=== PATIENT | female | born 1950 | race Caucasian/White ===

== ENCOUNTER 2018-10-27 16:47 | Observation (INO) | payer MEDICARE ==
[~2018-10-27] VITALS: Ht 167.6 cm; Wt 104.0 kg
--- NOTE | ~2018-10-27 | HEMODYNAMI ---
PATIENT:SPEEDY CHI MEDICAL RECORD: [id number] : 46 LOCATION:[facility] D.2111 ADMISSION DATE: 10/27/18 Generatedon:10/28/201811:34 Patient name: SPEEDY CHI Patient #: [id number] SSN: : 1950 Date of study: 10/28/2018 Page: Of Hemodynamic Procedure Report Patient Data Patient Demographics Procedure consent was obtained First Name: SPEEDY Gender: Female Last Name: ALON : 1950 [facility] Initial: ATIYA Age: 68 year(s) Patient #: [id number] Race: Unknown Additional ID: [id number] Contact details [address]: [address] [place] [address] OfficialVirtualDJ State: [place] City: [place] Zip code: [address] Past Medical History Allergies Allergen Reaction Date Comments Reported Other allergy 10/28/2018 LIZETT HALEY Admission Admission Data Admission Date: 10/27/2018 Admission Time: 16:47 Room #: D.2111 Height (in.): 66 BSA: 2.12 (m2) Height (cm.): 167.64 BMI: 36.96 (kg/m2) Weight (lbs.): 229 Weight (kg.): 103.87 Lab Results Lab Result Date: 10/28/2018 Lab Result Time: 0:00 Biochemistry Name Units Result Min Max BUN mg/dl 26 --(----)-* 7 18 Creatinine mg/dl 1 --(--*-)-- 0.6 1.3 CBC Name Units Result Min Max Hematocrit % 40.2 -*(----)-- 42 54 Hemoglobin g/dl 13.6 --(*---)-- 13.5 17.5 Procedure Procedure Types Cath Procedure Diagnostic Procedure [facility] w/Coronaries FFR/IVUS FFR Initial Sedation Charges Moderate Sedation up to 15 minutes PCI Procedure Coronary Stent Coronary Stent Initial Coronary Stent Additional Procedure Description Procedure Date Procedure Date: 10/28/2018 Procedure Start Time: 11:07 Procedure Staff Name Function Javi Hurley MD Performing Physician Ivy Mg RT Monitor Tara Barfield RT Scrub Carly De Anda RN Nurse Procedure Data Cath Procedure Fluoroscopy Diagnostic fluoroscopy Total fluoroscopy Time: 4.9 time: 4.9 min min Diagnostic fluoroscopy Total fluoroscopy dose: 990 dose: 990 mGy mGy Contrast Material Contrast Material Type Amount (ml) Isovue 300 111 Entry Location Entry Primary Successful Side Size Upsize Upsize Entry Closure Succes sful Closure Location (Fr) 1 (Fr) 2 (Fr) Remarks Device Remarks Femoral Right 5 Fr 6 Fr Exoseal artery Short Estimated blood loss: 10 ml Diagnostic catheters Device Type Used For End Catheter Placement MULTIPACK Pigtail 5 Fr Procedure catheter MULTIPACK JL 4.0 5Fr Procedure catheter MULTIPACK 3DRC 5Fr Procedure catheter Procedure Complications No complications Procedure Medications Medication Administration Route Dosage 0.9% NaCl I.V. 100 ml/hr Oxygen etCO2 Nasal cannula 2 l/min Lidocaine 2% added to field 20 Heparin Flush Bag added to field 2 bags (1000units/500ml NS) Versed I.V. 2 mg Fentanyl I.V. 50 mcg Fentanyl I.V. 50 mcg Heparin Bolus I.V. 5000 units Integrilin (Bolus I.V. 9.5 ml 2mg/ml) Hemodynamics Rest BSA: 2.12 (m2) O2 Consumption: Estimated: 288.32 (ml/min) O2 Consumption indexed : Estimated:136 (ml/min/m) Pre Cath Intra NCS Post Cath Vital Signs Time Heart Resp SPO2 etCO2 NIBP (mmHg) Rhythm Pain Sedation Rate (ipm) (%) (mmHg) Status Level (bpm) 10:53:33 70 17 100 16.5 150/72(97) NSR 0 (11) 10(A) , No pain 10:57:51 71 14 96 36.2 113/61(83) NSR 0 (11) 10(A) , No pain 11:02:07 70 12 97 39 122/63(94) NSR 0 (11) 10(A) , No pain 11:06:23 70 14 96 38.4 118/58(81) NSR 0 (11) 10(A) , No pain 11:10:39 71 10 96 40.7 127/71(89) NSR 0 (11) 10(A) , No pain 11:14:57 77 11 97 39.9 140/72(105) NSR 0 (11) 9(A) , No pain 11:19:17 78 14 98 41.4 140/78(103) NSR 0 (11) 9(A) , No pain 11:24:16 79 16 99 41.4 Measuring NSR 0 (11) 9(A) , No pain 11:24:49 80 15 99 41.4 169/82(135) NSR 0 (11) 9(A) , No pain 11:29:23 81 14 99 39.9 172/86(126) NSR 0 (11) 10(A) , No pain Medications Time Medication Route Dose Verified Delivered Reason Notes Effectiveness by by 10:52:27 0.9% NaCl I.V. 100 Javi Carly used for ml/hr Xavi De Anda tele grout sewer line repairer 10:52:34 Oxygen etCO2 2 Javi Carly used for Nasal l/min Xavi De Anda procedure cannula RN 10:52:40 Lidocaine 2% added 20ml Javi Javi for local to vial Xavi Hurley MD anesthetic field 10:52:44 Heparin Flush added 2 Javi Javi used for Bag to bags Xavi Hurley MD procedure (1000units/500ml field NS) 11:06:28 Versed I.V. 2 mg Javi Carly for sedation Xavi De Anda RN 11:06:38 Fentanyl I.V. 50 Javi Carly for sedation mcg Xavi De Anda RN 11:10:30 Fentanyl I.V. 50 Javi Carly for sedation mcg Xavi De Anda RN 11:15:55 Heparin Bolus I.V. 5000 Javi Carly for verif ied units Xaiv De Anda anticoagulation with Dr. RUSSELL Hurley 11:16:08 Integrilin I.V. 9.5 Javi Carly for waste d (Bolus 2mg/ml) ml Xavi De Anda antiplatelet 0.5mL RN therapy Procedure Log Time Note 10:30:37 Signed procedure consent form obtained from patient. 10:35:48 Tara Barfield RT(R) sent for patient. Start room use. 10:35:49 Time tracking: Regular hours (M-F 7:00 - 5:00) 10:35:53 Plan of Care:Hemodynamics will remain stable., Cardiac rhythm will remain stable., Comfort level will be maintained., Respiratory function will remain adequate., Patient/ family verbilizes understanding of procedure., Procedure tolerated without complication., Recovers from procedure without complications.. 10:39:45 Patient Weight : 229 lbs 10:39:48 Patient Height : 66 inches 10:40:00 Patient allergic to Other allergyPCN, CODEINE 10:40:27 Lab Result : BUN 26 mg/dl 10:40: Lab Result : Creatinine 1 mg/dl 10:40: Lab Result : Hemoglobin 13.6 g/dl 10:40:27 Lab Result : Hematocrit 40.2 % 10:46:30 Patient received from Med II to CCL 1 Alert and oriented. Tansferred to table in Supine position. 10:46:31 Warm blankets applied, and samina hugger turned on for patient comfort. 10:46:34 Correct patient and procedure confirmed by team. 10:46:35 ECG and BP/O2 sat monitors applied to patient. 10:52:16 Vital chart was started 10:52:27 0.9% NaCl 100 ml/hr I.V. was administered by Carly De Anda RN; used for procedure; 10:52:34 Oxygen 2 l/min etCO2 Nasal cannula was administered by Carly De Anda RN; used for procedure; 10:52:40 Lidocaine 2% 20ml vial added to field was administered by Javi Hurley MD; for local anesthetic; 10:52:44 Heparin Flush Bag (1000units/500ml NS) 2 bags added to field was administered by Javi Hurley MD; used for procedure; 10:55:02 Full Disclosure recording started 10:55:04 Pre-procedure instructions explained to patient. 10:55:04 Pre-op teaching completed and patient verbalized understanding. 10:55:06 Family in patients room. 10:55:07 Patient NPO since Midnight. 10:55:09 Is patient on blood thinner?Yes 10:55:15 PRE LOADED 10:55:17 Patient diabetic? Yes. 10:55:24 INSULIN DEPENDENT 10:55:26 If diabetic: On Metformin? N/A 10:55:31 Patient not . Patient is over age 55. 10:55:32 Previous problem with sedation/anesthesia? No ? 10:55:34 Snore? Yes 10:55:34 Sleep apnea? No 10:55:36 Deviated septum? No 10:55:37 Opens mouth fully? Yes 10:55:37 Sticks out tongue? Yes 10:55:39 Airway obstruction? No ? 10:55:42 Dentures? No ? 10:55:47 Pre procedure: right dorsailis pedis pulse 1+ Palpable, but thready & weak; easily obliterated 10:56:02 PT IS A RESERVE RIGHT ARM GROIN ONLY 10:56:05 Patient pain scale 0/10 ?. 10:56:09 IV patent on arrival in left antecubital with 0.9% NaCl at [facility]. 10:56:11 Lab results completed and on chart. 10:56:14 Right groin area was prepped with chlora-prep and draped in sterile fashion 10:56:15 Alarms reviewed by R. N. 10:56:15 Sharps counted by scrub and verified by R.N. 10:56:40 Use device set Femoral Dx 10:56:42 ACIST Syringe (51619) opened to sterile field. 10:56:43 Bag Decanter (2002S) opened to sterile field. 10:56:44 ACIST Hand Control (52340) opened to sterile field. 10:56:44 ACIST Manifold (34506) opened to sterile field. 10:56:45 Tegaderm 4 x 4 (1626W) opened to sterile field. 10:56:46 Medline Cath Pack ([id number]) opened to sterile field. 10:56:48 DIAGNOSTIC Multipack 5Fr catheter set (VH0564) opened to sterile field. 10:57:02 EMERALD Guide Wire (467-014) opened to sterile field. 10:57:03 SHEATH 5FR Deepwater (NAK427) opened to sterile field. 11:03:12 Zero performed for pressure channel P1 11:05:15 --------ALL STOP TIME OUT------ 11:05:16 Final Timeout: patient, procedure, and site verified with staff and physician. All members of the team are in agreement. 11:05:18 Right groin site verified by team. 11:05:20 Maximum allowable Isovue 300 dose 300ml. Physician notified. (300ml for normal creatinines. For patients with creatinine of 1.7 or higher multiply weight(kg) x 5 divided by creatinine.) 11:05:25 Fire Safety Assessment: A--An alcohol-based skin anteseptic being used preoperatively., C--Open oxygen or nitrous oxide is being used., D--An ESU, laser, or fiber-optic light is being used. 11:05:28 Physical assessment completed. ASA score P 2 - A patient with mild systemic disease as per Javi Hurley MD. 11:05:31 Sedation plan: IV Moderate Sedation Medication:Versed, Fentanyl 11::28 Versed 2 mg I.V. was administered by Carly De Anda RN; for sedation; 11::38 Fentanyl 50 mcg I.V. was administered by Caryl De Anda RN; for sedation; 11::34 Local anesthetic to right femoral artery with Lidocaine 2% by Javi Hurley MD.INITIAL ACCESS ONLY 11:09:50 NEEDLE iMusica 18G 7cm Percutaneous Entry needle (I52490) opened to sterile field. 11:10:30 Fentanyl 50 mcg I.V. was administered by Carly De Anda RN; for sedation; 11:10:30 A 5 Fr sheath was inserted into the Right Femoral artery 11:10:37 A MULTIPACK Pigtail 5 Fr catheter was advanced over the wire and used for Procedure. 11:11:24 LV gram done using SHIPLEY 11:11:26 Injector settings: Ml/sec: 10, Volume: 20, 11:11:32 EF : 60 % 11:12:56 A MULTIPACK JL 4.0 5Fr catheter was advanced over the wire and used for Procedure. 11:12:57 LCA angiography performed. 11:13:08 Catheter removed. 11:13:27 SHEATH 6FR Deepwater (HDT033) opened to sterile field. 11:13:27 INFLATOR Merit BasixCompak (KH6722) opened to sterile field. 11:13:28 CHOICE PT Extra Support 182cm wire ([id number]) opened to sterile field. 11:13:34 Saint Ann Verrata Plus pressure wire (09464K) opened to sterile field. 11:13:40 Sheath upsized to a 6 Fr Short. 11:14:14 A MULTIPACK 3DRC 5Fr catheter was advanced over the wire and used for Procedure. 11:14:20 RCA angiography performed. 11:14:22 Catheter removed. 11:15:55 Heparin Bolus 5000 units I.V. was administered by Carly De Anda RN; for anticoagulation; verified with Dr. Hurley 11:16:08 Integrilin (Bolus 2mg/ml) 9.5 ml I.V. was administered by Carly De Anda RN; for antiplatelet therapy; wasted 0.5mL 11:16:15 GUIDE 6FR HS I catheter (LA6HSI) opened to sterile field. 11:16:26 6 Fr HS 1 guide catheter was inserted over the wire 11:16:31 CHOICE ES 182 wire advanced. 11:16:32 Wire advanced across lesion. 11:17:50 Place stent Inflation Number: 1 A VINNIE RX 3.5 x 18 stent ([id number]) was prepped and advanced across the Prox RCA 90. The stent was deployed at 13 JENNIFER for 0:00 (min:sec) 0. 11:18:31 Stent catheter was removed intact over wire. 11:18:31 Wire removed. 11:18:33 Guide catheter removed. 11:21:04 GUIDE 6FR XBLAD 3.5 catheter ([id number]) opened to sterile field. 11:21:14 6 Fr XBLAD 3.5 guide catheter was inserted over the wire 11:21:29 CHOICE ES 182 wire advanced. 11:21:38 Wire advanced across lesion. 11:22:46 Inflate balloon Inflation number: 1 A EUPHORA 2.0 x 15 Balloon ([id number]) was prepped and advanced across the 1st Diag , then inflated to 11 JENNIFER for 0:00 (min:sec) . 11:22:59 Inflation number: 2 The EUPHORA 2.0 x 15 Balloon ([id number]) was reinflated across the 1st Diag , to 11 JENNIFER for 0:00 (min:sec) . 11:23:12 Balloon removed over the wire. 11:25:09 Place stent Inflation Number: 3 A VINNIE RX 2.0 x 15 stent ([id number]) was prepped and advanced across the 1st Diag . The stent was deployed at 11 JENNIFER for 0:00 (min:sec) . 11:25:33 Stent catheter was removed intact over wire. 11:25:38 Wire removed. 11:26:59 FFR/IFR wire advanced. 11:27:22 Wire advanced across lesion. 11:28:13 mLAD lesion measured at .90 with IFR 11::18 Wire removed. 11::19 Guide catheter removed. 11::28 EXOSEAL 6Fr (EX600) opened to sterile field. 11::18 Sheath removed intact; hemostasis achieved with Exoseal to the Right Femoral artery. 11:29:19 Procedure ended.(Physican Out) 11::29 Fluoroscopy dose: 990 mGy 11:: Flurop Dose total: 990 11::34 Fluoroscopy time 04.90 minutes. 11::42 Contrast amount:Isovue 300 111ml. 11::43 Sharps counted by scrub and verified by R.N. 11::46 Post-op/insertion site Right Femoral artery dressed using a 4 x 4 and Tegaderm. 11::49 Post-procedure physical assessment completed. ASA score P 2 - A patient with mild systemic disease as per Javi Hurley MD. 11:29:51 Post procedure rhythm: sinus rhythm 11::53 Estimated blood loss: 10 ml 11::55 Post procedure instruction explained to patient.Patient verbalizes understanding. 11::55 Patient needs reinforcement of post procedure teaching. 11:30:18 Procedure type changed to Cath procedure, Diagnostic procedure, LHC, LHC w/Coronaries, FFR/IVUS, FFR Initial, Sedation Charges, Moderate Sedation up to 15 minutes, PCI procedure, Coronary Stent, Coronary Stent Initial, Coronary Stent Additional 11:31:13 Procedure and supply charges have been captured, reviewed, submitted and are correct. 11:31:15 Procedure Complication : No complications 11:31:17 Vital chart was stopped 11::18 See physician's report for complete and final results. 11:31:19 Report given to PCU. 11:31:21 Patient transfered to PCU with Bed. 11:31:28 End room use (Document Last) Intervention Summary Intervention Notes Time ActionType Lesion and Equipment Used Action# Pressure Duration Attributes 11:17:50 Place stent Prox RCA VINNIE RX 3.5 x 1 13 00:00 18 stent ([id number]) 11:22:46 Inflate 1st Diag EUPHORA 2.0 x 1 11 00:00 balloon 15 Balloon ([id number]) 11:22:59 Reinflate 1st Diag EUPHORA 2.0 x 2 11 00:00 balloon 15 Balloon ([id number]) 11:25:09 Place stent 1st Diag VINNIE RX 2.0 x 3 11 00:00 15 stent ([id number]) Device Usage Item Name Manufacture Quantity Catalog Number Hospital Part Current Minimal Lot# / Charge Number Stock Stock Serial# Code ACIST Syringe Acist 1 28739 650011 367130 931921 20 (99274) Medical Systems Wellcentive Bag Decanter Microtek 1 2001S 395680 34869 112658 5 (2001S) Medical Inc. ACIST Hand Acist 1 89215 757662 364984 889446 5 Control Medical (89250) Systems Inc ACIST Manifold Acist 1 01863 715865 691016 647144 5 (88022) Medical Systems Wellcentive Tegaderm 4 x 4 3M 1 1626W 243565 360120 255599 5 (1626W) Medline Cath Medline 1 [id number] 068745 20755 143090 5 Pack ([id number]) DIAGNOSTIC Cardinal 1 RM9763 376208 70757 151776 30 Multipack 5Fr Health catheter set (ZK5471) EMERALD Guide Cardinal 1 502-455 792027 676305 483273 5 Wire (502-455) Health SHEATH 5FR Terumo 1 PRB805 251498 178016 089541 5 Deepwater (DYQ336) NEEDLE Cook Cook Medical 1 E74688 155794 34362 699067 5 18G 7cm Percutaneous Entry needle (C26850) MULTIPACK Cardinal 1 109683 5 Pigtail 5 Fr Health catheter SHEATH 6FR Terumo 1 RHC975 547507 705821 982342 40 Deepwater (VIB512) INFLATOR Merit Merit 1 FI3707 274065 790572 687208 15 [facility] CenterDigitel Medical (JS3226) CHOICE PT Carnation 1 [id number] 342299 560549 247479 5 Extra Support Scientific 182cm wire ([id number]) Saint Ann Saint Ann 1 83800N 656320 601390751 422060 5 Verrata Plus pressure wire (64767W) MULTIPACK JL Cardinal 1 356822 5 4.0 5Fr Health catheter MULTIPACK 3DRC Cardinal 1 104190 5 5Fr catheter Health GUIDE 6FR HS I Medtronic 1 LA6HSI 328393 69208 635189 1 catheter (LA6HSI) VNINIE RX 3.5 x Medtronic 1 [id number] 121058 1259631 504674 5 [id number] 18 stent ([id number]) GUIDE 6FR Cardinal 1 [id number] 330242 057537 156583 10 XBLAD 3.5 Health catheter ([id number]) EUPHORA 2.0 x Medtronic 1 [id number] 197382 949847 878879 5 [id number] 15 Balloon ([id number]) VINNIE RX 2.0 x Medtronic 1 [id number] 219910 9719464 306184 5 [id number] 15 stent ([id number]) EXOSEAL 6Fr Cardinal 1 EX600 496949 633538 477421 10 (EX600) Health Signature Audit [place] Stage Time Signature Unsigned Intra-Procedure 10/28/2018 Ivy Mg 11:34:35 AM RT(R) Signatures Monitor : Ivy Mg Signature : RT Date : Time : [place] [id number] [place] [address]
--- NOTE | ~2018-10-27 | DS ---
PATIENT:SPEEDY CHI :46 MEDICAL RECORD: [id number] DISCHARGE SUMMARY ADMISSION DATE: 10/27/18 DISCHARGE DATE: 10/28/18 DATE OF SERVICE: 10/28/2018 DIAGNOSES: 1. Non-Q-wave myocardial infarction. 2. Coronary artery disease. 3. Percutaneous transluminal coronary angioplasty and stent to the right coronary artery and left anterior descending diagonal this admission. 4. Hypertension. 5. Hyperlipidemia. HOSPITAL COURSE: Ms. Chi presents with acute coronary syndrome, non-Q-wave myocardial infarction, found to have critical disease of the RCA and LAD diagonal and underwent successful PTCA and stent of both territories, was discharged home with the addition of aspirin and Plavix to her medical regimen. She is already on a statin, beta-pavan was not added due to bradycardia. Follow [facility] with [facility] in [facility] month. TRANSINT:[id number] Voice Confirmation ID: [id number] DOCUMENT ID: [id number] MIGUELINA PANDYA MD CC: [id number] DICTATION DATE: 10/28/18 1135 BOOK CUTTER: 10/29/18 0427 DIS IN 10/28/18 [facility] [address] [place] [address]
[~2018-10-27 16:47] MED LIST: BAYER CHEWABLE81 MG PO; FLAGYL500 MG PO; LANTUS INSULIN10 ML SC; LEVAQUIN500 MG PO; PERCOCET 10/3251 TA1 PO; PRAVACHOL20 MG PO; PROZAC20 MG PO; ZETIA10 MG PO
[2018-10-27 17:50] LABS: BASOPHILS 0.4 % (0-2); EOSINOPHILS 1.6 % (0-7); HEMATOCRIT 40.2 % (36.0-48.0); HEMOGLOBIN 13.6 g/dL (12-16); IMMATURE GRANULOCYTES 0.4 % (0-5); LYMPHOCYTES 18.4 % (15-50); MCH 29.4 pg (26.0-34.0); MCHC 33.8 g/dL (31.0-37.0); MCV 86.8 fL (80.0-100.0); MEAN PLATELET VOLUME 10.4 fL (7.4-10.4); MONOCYTES 7.7 % (2-11); NEUTROPHILS 71.5 % (40-80); PLATELET COUNT 226 10x3/uL (130-400); RBC 4.63 10x6/uL (4.00-5.40); RDW 13.7 % (11.5-14.5); WBC 7.5 10x3/uL (4.8-10.8)
[2018-10-27 18:06] LABS: ANION GAP 14.2 mmol/L (8-16); CALCIUM 8.9 mg/dL (8.5-10.1); CARBON DIOXIDE 26.3 mmol/L (21.0-32.0); POTASSIUM - SERUM 4.5 mmol/L (3.5-5.1)
--- NOTE | 2018-10-27 18:06 | NUR ---
PT A DIRECT ADMIT WITH CP. HOWEVER NO CURRENT CHEST PAIN. VSS. WILL BEGIN ADMISSION WORKUP AND CHECK ORDERS. DID START 22 GUAGE PIV TO L.FA X2 STICKS, SALINE LOCKED. WILL APPLY TELEMETRY. PAGED FOR CONSULT AND HE WILL SEE IN AM. NO IMMEDIATE NEEDS. AT BEDSIDE. WILL CTM.
[2018-10-27 18:28] LABS: CKMB 1.1 U/L (0.0-3.6); CREATINE KINASE 103 UL (21-215)
[2018-10-27 18:40] LABS: TROPONIN-I 0.353 ng/mL (0.000-0.060)
[2018-10-27 20:00] VITALS: BP 134/61
[2018-10-27] MEDS ORDERED: LANTUS SOL100 UNIT/1 SQ (21:29)
[2018-10-27] MEDS ORDERED: MAXZIDE 75/501 TAB PO (21:32)
[2018-10-27] MEDS ORDERED: AVAPRO75 MG PO (21:33)
[2018-10-27] MEDS ORDERED: PROZAC40 MG PO (21:33)
[2018-10-27] MEDS ORDERED: HUMALOG 30100 UNITS/ SC (21:34)
[2018-10-28] VITALS: BP 111/62
[2018-10-28 00:10] LABS: CKMB 1.2 U/L (0.0-3.6); CREATINE KINASE 102 UL (21-215)
[2018-10-28 00:12] LABS: TROPONIN-I 0.379 ng/mL (0.000-0.060)
[2018-10-28 04:00] VITALS: BP 115/49
[2018-10-28 04:34] VITALS: BP 134/61; Ht 167.6 cm; Wt 104.0 kg
[2018-10-28 06:31] LABS: CKMB 1.1 U/L (0.0-3.6); CREATINE KINASE 83 UL (21-215)
--- NOTE | 2018-10-28 07:45 | NUR ---
INITIAL ROUNDING, THE PATIENT IS AWAKE AND RESTING IN THE BED, SHE DENIES PAIN AND STATES, "IM SUPPOSED TO HAVE HEART CATH TODAY", CALL LIGHT IN REACH.
[2018-10-28 08:31] VITALS: BP 118/45
--- NOTE | 2018-10-28 09:42 | NUR ---
CALLED PHARMACY, SPOKE TO RAMOS TO REQUEST HIGH DOSE PLAVIX PER DR PANDYA
--- NOTE | 2018-10-28 11:40 | NUR ---
CALLED AND REPORTED TO ZANDRA Champagne MA FOR DR AYALA THAT THE PATIENT IS BEING DISCHARGED FROM THE TRANSMISSION SYSTEMS OPERATOR PER DR PANDYA
--- NOTE | 2018-10-28 11:51 | NUR ---
PATIENT ARRIVED BACK TO THE FLOOR VIA BED WITH EXPORT FREIGHT SPECIALIST STAFF AFTER THE FLOW COORD TIMOTEO WAS TOLD THE PATIENT WOULD DISHCARGE FROM THE [facility]. SHE IS NOT BEING DISCHARGED FROM THE EXPORT FREIGHT SPECIALIST. DR AYALA WILL BE CALLED AGAIN TO SET UP FOLLOW UP APPOINTMENT.
[2018-10-28] MEDS ORDERED: TRIAMTERENE-HCT1 TA2 PO (14:23)
[2018-10-28] MEDS ORDERED: PLAVIX75 MG PO (14:27)
[2018-10-28] MEDS ORDERED: PRAVACHOL80 MG PO (14:28)
--- NOTE | 2018-10-28 14:53 | NUR ---
PATIENT RESTING WITH EYES CLOSED, WAKES EASILY. FAMILY AT THE BEDSIDE. CALL LIGHT IN REACH. RIGHT GROIN DRESSING CDI, NO HEMATOMA NOTED. PATIENT CONTINUES TO LAY FLAT, AWAITING DISCHARGE
--- NOTE | 2018-10-28 15:50 | MORECARE ---
CASE MANAGEMENT DISCHARGE SUMMARY PATIENT: SPEEDY CHI RAJPUT UNIT: [id number] ADM DATE: 10/27/18 AGE: 68 : 46 SEX: F ROOM/BED: D.2111 AUTHOR: JOSEF DONOVAN PHYSICIAN: REFERRING PHYSICIAN: FRANKIE AYALA MD DATE OF SERVICE: 10/28/18 Discharge Plan Patient Name: SPEEDY CHI Facility: [facility]:[place] : 1950 Planned Disposition: Home Anticipated Discharge Date: 10/28/18 Discharge Date: Expected LOS: 1 Initial Reviewer: [email or web address] Initial Review Date: 10/28/2018 Generated: 10/28/18 4:50 pm Patient Name: SPEEDY CHI Page 01007 at 1550 All edits/amendments must be made on the electronic document DICTATION DATE: 10/28/18 1550 CHINESE HERBALIST: RUDI 10/28/18 1550 RPT#: [id number] DC DATE: STATUS: ADM IN [facility] [address] [place] [address] END OF REPORT
--- NOTE | 2018-10-28 16:16 | NUR ---
DISCHARGE PAPERS REVIEWED WITH THE PATIENT AND HER FAMILY, RX FOR PLAVIX GIVENT TO THE PATIENT. VITAL SIGNS WNL AND STABLE 135/57. PULSE 80. IV REMOVED FROM THE PATIENTS LEFT FOREARM REMOVED, CATH TIP IN TACT. TELE MONITOR REMOVED FROM THE PATIENT.
[2018-10-28 16:38] VITALS: BP 133/57
--- NOTE | 2018-10-28 16:47 | HP ---
PATIENT: SPEEDY CHI MEDICAL RECORD: [id number] ACCOUNT: [id number] LOCATION:[address] : 48 ADMISSION DATE: 10/27/18 PCP: FRANKIE AYALA MD HISTORY AND PHYSICAL EXAMINATION REASON FOR ADMISSION: Substernal chest pain. HISTORY OF PRESENT ILLNESS: The patient is a 68-year-old female with poorly controlled diabetes mellitus and metabolic syndrome. She states that, 2 days prior to admission, she was sitting down, resting, and developed onset of a muscular-type spasm in her substernal area. It waxed and waned for approximately an hour, did radiate into both jaws, and gradually resolved. She said she almost went to the hospital, but did not go. She was nauseated, but had no diaphoresis. She had another episode this afternoon at 2:45 at rest. Not related to meals. It as well was substernal tight muscular cramping feeling and then did radiate into her neck and jaw. It is now resolved. She came to the office with these symptoms. She denies any recent exertional chest discomfort. She said, with the first episode, she did vomit. She is a nonsmoker. PAST MEDICAL HISTORY: Poorly controlled diabetes mellitus with labs 6 months ago showing a fasting blood sugar of 192 and a A1c of 8.5; history of depression; postmenopausal posthysterectomy; hyperlipidemia; hypertension; osteoarthritis; history of carcinoma of the breast, post-mastectomy; history of cataracts; diverticulitis, for which she was hospitalized in 2014; and obesity. PAST SURGICAL HISTORY: Cataracts, both eyes; mastectomy of right breast in 1990; and history of hysterectomy and oophorectomy. SOCIAL HISTORY: She has remarried, previously , retired from being a teacher. She drinks coffee daily. She does not use alcohol or drugs. She does not smoke or have a history of that. She has poor exercise habits after shelter in 2012. ALLERGIES: PENICILLIN, CODEINE, AND METFORMIN. FAMILY HISTORY: Father at 79 with CABG and PTCA in the past, heart disease initially at age 50. Mother at 85 with CAD, hypertension, diabetes, and chronic urinary tract infections. Brother had CAD; PTCA, acute myocardial infarction. MEDICATIONS: Lantus insulin 80 units subcutaneously daily, pravastatin 80 mg with evening meal, Dyazide one q.a.m., Prozac 40 mg daily, irbesartan 75 mg p.o. daily, Humalog sliding scale as indicated, Flonase nasal spray one squirt in each nostril daily, and aspirin 81 mg daily. REVIEW OF SYSTEMS: GENERAL: She denies fatigue or fever. HEENT: No recent visual change, sinus congestion, sore throat, or hearing difficulty. RESPIRATORY: Denies shortness of breath, cough, or hemoptysis. CARDIAC: Substernal rest chest pain on 2 occasions, one 2 days ago and one this afternoon. There was tight muscular pain and it gradually crescendoed, radiating into her jaws and ears bilaterally. It lasted about an hour and resolved. Vomiting with one. No recent exertional chest pain and no HISTORY AND PHYSICAL [id number] SPEEDY CHI claudication. GENITOURINARY: No nocturia. GYNECOLOGIC: No vaginal bleeding. ENDOCRINE: Denies polyuria, polydipsia, heat or cold intolerance. NEUROLOGIC: No history of stroke, TIA, or vascular headaches. INTEGUMENT: No rash or itching. PSYCHIATRIC: Admits to depressed mood, stable on Prozac. PHYSICAL EXAMINATION: GENERAL: Alert 68-year-old female, in no acute distress. VITAL SIGNS: Temperature is 98.6, blood pressure is 130/68, heart rate is 72 and regular, and respirations are 18. She weighs 231 pounds with height of 5 feet 5 inches and BMI of 38.4. HEENT: Oropharynx unremarkable. Eyes are clear. Pupils are reactive with lens implants noted. NECK: No bruits or masses. CHEST: Distant breath sounds without wheeze or rales. HEART: Regular rate and rhythm without MGR. PMI appropriate. BREASTS: Right breast is absent. ABDOMEN: Grossly obese and nontender throughout. Bowel sounds are active. PELVIC: Deferred. EXTREMITIES: Trace bipedal edema. No acrocyanosis. NEUROLOGICAL: Oriented to person, place, and time. Cranial nerves are intact. Gait is normal. Memory is intact. LABORATORY DATA: EKG shows right bundle-branch block with reciprocal changes in the anterolateral leads, which is unchanged from February of 2018. ASSESSMENT: 1. Unstable angina. 2. Metabolic syndrome with poorly controlled diabetes mellitus. 3. Family history of early CAD in father at age 50. 4. Hypertension. 5. Hyperlipidemia. 6. Morbid obesity. 7. History of diverticulosis, postmenopausal, and osteoarthritis. PLAN: The patient will be directly admitted to the cardiac floor with stat enzymes. She will be placed at rest with O2. Nitro as needed. Cardiology consult will be obtained and echo as well. TRANSINT:[id number] Voice Confirmation ID: [id number] DOCUMENT ID: [id number] FRANKIE AYALA MD at 1647 CC: [id number] DICTATION DATE: 10/27/18 1631 FONDANT PUFF MAKER: 10/27/18 1710 ADM IN [facility] [address] [place] [address]
--- NOTE | 2018-10-28 18:07 | CN ---
PATIENT NAME:SPEEDY CHI MEDICAL RECORD: [id number] : 46 LOCATION:D. D.2111 ADMIT DATE: 10/27/18 ACCOUNT: [id number] CONSULTING PHYSICIAN: MIGUELINA PANDYA MD REFERRING PHYSICIAN: FRANKIE AYALA MD DATE OF CONSULTATION: 10/28/2018 DIAGNOSES: 1. Non-Q-wave myocardial infarction. 2. Coronary artery disease. 3. Hyperlipidemia. 4. Hypertension. 5. Insulin-dependent diabetes. HISTORY OF PRESENT ILLNESS: Mrs. Chi has no previous cardiac history. She began having episodes of chest pain on Friday. This persisted. She presented to the Emergency Room last night. Troponin was mildly elevated. EKG shows lateral ST depression as well as T wave inversion. She does continue to have episodes of chest discomfort this morning, although improved. She is on optimal medical therapy as her heart rate is 60 and her systolic blood pressure is in the 111 range. PHYSICAL EXAMINATION: GENERAL APPEARANCE: Well-nourished, well-developed, appears stated age. Level of distress, comfortable. PSYCHIATRIC: Mental status, alert, normal affect. Orientation, oriented to time, place and person. EYES: Lids and conjunctiva, noninjected. No discharge, no pallor. ENT: Lips, teeth, gums, normal dentition. Oropharynx, no cyanosis, no pallor. NECK: Carotid arteries, bilateral normal upstroke, no bruits, no thrills. JUGULAR VEINS: No jugular venous pressure or distention. CERVICAL LYMPH NODES: Nontender, nonenlarged. THYROID: Not enlarged. Nontender. No nodules. LUNGS: Respiratory effort, unlabored. CHEST: Normal curvature. No thoracic deformity. No chest wall tenderness. Percussion, resonant. Auscultation, clear. No wheezes, no rales, no rhonchi. CARDIOVASCULAR: Precordial exam, nondisplaced. No heaves or pericardial thrills. Rate and rhythm, regular. Heart sounds, normal S1, normal S2. No S3, no gallop, no rub. Systolic murmur, not heard. Diastolic murmur, not heard. EXTREMITIES: No cyanosis, no edema. Peripheral pulses, full and equal in all extremities, except as noted. No bruits appreciated. ABDOMEN: Soft, nondistended. Normal aorta. No bruit. Nontender. No masses. Liver, nontender, no hepatomegaly. Spleen, nontender, no splenomegaly. MUSCULOSKELETAL: No joint tenderness. No joint swelling. No erythema. NEUROLOGICAL: Normal gait, normal strength, normal tone. SKIN: Warm and dry. OVERALL IMPRESSION: Non-Q-wave myocardial infarction and continued chest discomfort, on optimal medical management. We will proceed with coronary angiography. Further care depends upon findings of the angiography. TRANSINT:[id number] Voice Confirmation ID: [id number] DOCUMENT ID: [id number] CONSULT REPORT [id number] SPEEDY CHI JEFFREY MD at 1807 CC: [id number] DICTATION DATE: 10/28/18912 PROCESS INSPECTOR: 10/28/18 1209 DIS IN 10/28/18 [place] [id number] [place] [address]
--- NOTE | 2018-10-28 18:07 | EC ---
PATIENT:SPEEDY CHI DATE OF SERVICE: 10/27/18 SEX: F MEDICAL RECORD: [id number] DATE OF : 46 LOCATION:D.M2 D.211 AGE OF PATIENT: 68 ADMISSION DATE: 10/27/18 REFERRING PHYSICIAN: INTERPRETING PHYSICIAN: MIGUELINA HURLEY MD ECHOCARDIOGRAM REPORT ECHO CHARGES 4 ECHO COMPLETE Date: 10/28/18 CLINICAL DIAGNOSIS: UNSTABLE ANGINA ECHOCARDIOGRAPHIC MEASUREMENTS (adult normal given) AC root (d.<3.7cm) 3.5 cm LV Septum d (<1.2 cm> 1.5 cm Valve Excursion 1.6 cm LV Septum (systole) 1.7 cm Left Atria (s.<4.0cm> 3.6 cm LVPW d(<1.2cm) 1.5 cm RV (d.<2.3cm) 3.3 cm LVPW (sytole) 1.8 cm LV diastole(<5.6CM) 4.1 cm MV E-F(>70mm/sec) cm LV systole 2.6 cm LVOT Diameter 1.8 cm MV exc.(>10mm) 1.4 cm Est.ejection fraction (50-75%) % DOPPLER: LVIT cm/sec A 112 cm/sec E 83.0 cm/sec LA cm/sec RVSP 20 mmHg LVOT 80 cm/sec AOP1/2T m/s Asc. Ao 162 cm/sec RVOT 107 cm/sec RA cm/sec PA 126 cm/sec AV Gradient Peak 10.50mmHg AV Mean 7.10 mmHg AV Area 1.5 cm MV Gradient Peak 5.05 mmHg MV Mean 1.91 mmHg MV Area cm COMMENTS: Staff Readiness Officer: Gia REYES Ocular Care Aide: 1 Dr. Hurley TAPE# PACS Pericardial Effusion N DATE OF SERVICE: 10/28/2018 FINDINGS: 1. Left ventricular chamber size is within normal limits. Left ventricular systolic function is normal. Overall ejection fraction is estimated at 60%. 2. Left atrium, right atrium, and right ventricular size is within normal limits. 3. Valvular structures have normal structure and motion. 4. Doppler interrogation reveals no significant valvular insufficiency or stenosis. Pulmonary systolic pressure is normal, estimated at 20 mmHg. ECHOCARDIOGRAM REPORT [id number] SPEEDY CHI 5. No evidence of pericardial effusion or left ventricular thrombus. TRANSINT:[id number] Voice Confirmation ID: [id number] DOCUMENT ID: [id number] MIGUELINA HURLEY MD at 1807 CC: [id number] DICTATION DATE: 10/28/18 162 HYDROELECTRIC POWERPLANT SUPERVISOR: 10/28/18 1726 DIS IN 10/28/18 [place] [id number] [place] [id number]
--- NOTE | 2018-10-28 18:07 | OP ---
PATIENT NAME: SPEEDY CHI MEDICAL RECORD: [id number] :46 LOCATION:D.M2 D.2111 ADMISSION DATE:10/27/18 SURGEON: MIGUELINA PANDYA MD DATE OF OPERATION: 10/28/2018 PROCEDURES: 1. PTCA and stent, RCA. 2. PTCA and stent, LAD diagonal. 3. IFR, LAD. 4. Left heart catheterization. 5. Selective coronary angiography. 6. Left ventriculogram. INDICATION: Non-Q-wave myocardial infarction, acute coronary syndrome. PROCEDURE IN DETAIL: After informed consent was obtained with detailed description of risks and benefits as well as alternative therapies, the patient elected to proceed with angiogram and angioplasty. The right femoral area was prepped and draped in normal sterile fashion. The right femoral artery was cannulated via modified Seldinger technique with placement of 6-[place] sheath. All catheters were exchanged through the sheath. FINDINGS: Left ventriculogram performed in standard 30-degree SHIPLEY view reveals ejection fraction in the 55% range. SELECTIVE CORONARY ANGIOGRAPHY: 1. Left main has no significant angiographic disease. 2. Left anterior descending has a diagonal that is 99% stenosed with ZACHARY 1 flow. Otherwise, the LAD has moderate irregularities. IFR is 0.9, hence not flow limiting. 3. Left circumflex has mild irregularities, but no flow-limiting stenosis. 4. Right coronary has 99% stenosis with what appears to be active thrombus in the proximal vessel runoff. PTCA AND STENT OF THE RCA: Stent used was 3.5 x 18 mm [place], taken to 15 atmospheres. Result was 0% residual stenosis throughout. PTCA AND STENT OF THE LAD DIAGONAL: Stent used was 2.0 x 15 mm [place]. Result was 0% residual stenosis. OVERALL IMPRESSION: Successful PTCA and stent of the RCA and LAD diagonal, both going from 99% initial stenosis to 0% residual. TRANSINT:[id number] Voice Confirmation ID: [id number] DOCUMENT ID: [id number] MIGUELINA PANDYA MD at 1807 CC: [id number] DICTATION DATE: 10/28/18 1134 IRONER: 10/28/18 1323 DIS IN 10/28/18 [place] [address]
== END 2018-10-28 16:55 | disposition home or self-care (01) ==
LOC: OBSVTIME 16:47 → D.M2 16:47
PROVIDERS: ADMIT Family Medicine; ATTEND Family Medicine
DX: I21.4 Non-ST elevation (NSTEMI) myocardial infarction (principal); I24.9 Acute ischemic heart disease, unspecified; I10 Essential (primary) hypertension; E78.5 Hyperlipidemia, unspecified; E11.9 Type 2 diabetes mellitus without complications; E88.81 Metabolic syndrome and other insulin resistance; E66.01 Morbid (severe) obesity due to excess calories
CPT/HCPCS: 93458; 93571; C9600 ×2

== ENCOUNTER 2018-12-04 08:00 | Outpatient (CLI) | payer MEDICARE ==
[2018-10-28 04:34] VITALS: BMI 37.0
[~2018-12-04 08:00] MED LIST changes: +AVAPRO75 MG PO; +HUMALOG 30100 UNITS/ SC; +LANTUS SOL100 UNIT/1 SQ; +MAXZIDE 75/501 TAB PO; +PLAVIX75 MG PO; +PRAVACHOL80 MG PO; +PROZAC40 MG PO; +TRIAMTERENE-HCT1 TA2 PO
== END 2018-12-04 11:00 | disposition home or self-care (01) ==
LOC: D.MAMMO 08:00
PROVIDERS: ATTEND Family Medicine
DX: Z85.3 Personal history of malignant neoplasm of breast (principal)